=== PATIENT | male | born 1995 | race African-American/Black ===

== ENCOUNTER 2018-10-08 09:45 | Emergency (ER) | payer OTHER ==
[~2018-10-08] VITALS: Ht 172.7 cm; Wt 73.0 kg
[~2018-10-08 09:45] MED LIST: CEPH500C5 PO; HYDR-4383 PO
[2018-10-08 09:49] VITALS: BP 129/72
[2018-10-08] MEDS ORDERED: bacitracin 15gm ointment TP ONE (10:40)
[2018-10-08] MEDS ORDERED: BACI28OI9 TP (10:43)
[2018-10-08] MEDS ORDERED: CEPH-572 PO (10:43)
== END 2018-10-08 21:35 | disposition home or self-care (01) ==
LOC: ER 09:46
DX: S61.411D Laceration without foreign body of right hand, subsequent encounter (principal); S01.81XD Laceration without foreign body of other part of head, subsequent encounter; Z48.00 Encounter for change or removal of nonsurgical wound dressing; Z79.899 Other long term (current) drug therapy; W26.0XXD Contact with knife, subsequent encounter
CPT/HCPCS: 99284

== ENCOUNTER 2018-10-12 12:23 | Emergency (ER) | payer MEDICAID, OTHER ==
[~2018-10-12] VITALS: Ht 172.7 cm; Wt 72.7 kg
[~2018-10-12 12:23] MED LIST changes: +BACI28OI9 TP; +CEPH-572 PO
[2018-10-12 12:45] VITALS: BP 116/63
== END 2018-10-12 15:00 | disposition home or self-care (01) ==
LOC: ER 12:24
DX: S01.81XD Laceration without foreign body of other part of head, subsequent encounter (principal); S61.011D Laceration without foreign body of right thumb without damage to nail, subsequent encounter; Z48.02 Encounter for removal of sutures; Z79.899 Other long term (current) drug therapy; X99.1XXD Assault by knife, subsequent encounter
CPT/HCPCS: 99282